=== PATIENT | female | born 1975 | race African-American/Black ===

== ENCOUNTER → 2016-09-26 | Outpatient (CLI) | payer MEDICARE, OTHER ==
[2016-06-29 19:44] VITALS: BP 130/73
[~2016-09-26] MED LIST: AMLO1CAP8 PO; ATOR20TA58 PO; CYCL10TA2; DESV100T PO; DEXT30TA2 PO; LEVO100T5; LORA10CA PO; MELO-150; NAPR220C4 PO; OMEG1CAP6 PO; OXYC-323 PO; PANT40TA5; ZOLP5TAB PO
--- NOTE | 2016-09-26 10:55 | KCIC ---
PROCEDURE Left tibia-fibula radiographs HISTORY Pain to mid lower leg after a fall 1 week ago COMPARISON None FINDINGS Three views of left tibia fibula are submitted. No acute fracture or dislocation is identified. There is patellar prosthesis. There is osteoarthritic change of the medial and lateral compartments of the knee. IMPRESSION 1. No acute fracture is identified. Electronically signed by: Humza Alejandra MD (Sep 26, 2016 10:53:26)
--- NOTE | 2016-09-26 12:54 | KCIC ---
PROCEDURE MR of the left knee HISTORY Left knee pain. Patient fell 1 week ago. Pain is medial. COMPARISON None TECHNIQUE Standard noncontrast images are obtained. FINDINGS There is metal artifact at the patellofemoral joint resulting in artifactual degradation. Blunting and deformity of the medial meniscus compatible with a tear. There is also extrusion of the medial meniscus from the joint compartment. There is artifact at the anterior horn lateral meniscus obscuring its exam. There is mild blunting of the posterior horn and body of the lateral meniscus compatible with a small tear. The anterior cruciate ligament is partially obscured but appears intact. Posterior cruciate ligament is intact. Medial collateral ligament is intact. Iliotibial band, fibular collateral ligament, biceps femoris tendon and popliteus tendon are intact. The extensor mechanism is intact. Moderate joint effusion. No evidence of osteochondral loose body. Limited articular cartilage exam due to artifact. There is chondromalacia at the medial joint compartment. Milder degenerative changes at the lateral joint compartment. Geographic bone lesion within the central medullary canal of the tibial metaphysis, demonstrates signal pattern most compatible with osteonecrosis. This measures about 2.8 cm longitudinal. No evidence of associated bone marrow edema or aggressive bone destruction. IMPRESSION 1. Limited visualization due to artifact, particularly at the anterior knee. 2. Suspect medial and lateral meniscal tears, assuming there has not been prior meniscectomy. 3. Primary osteoarthritis. 4. 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 No associated acute edema. Electronically signed by: Chao Cook MD (Sep 26, 2016 12:52:13)
== END | disposition home or self-care (01) ==
LOC: KCIC MRI 09:15
PROVIDERS: ATTEND Physician Assistant Medical
DX: M17.12 Unilateral primary osteoarthritis, left knee (principal); M79.605 Pain in left leg; W19.XXXA Unspecified fall, initial encounter; Y93.89 Activity, other specified; Y92.89 Other specified places as the place of occurrence of the external cause; Y99.8 Other external cause status
CPT/HCPCS: 73590; 73721

== ENCOUNTER 2018-08-30 19:40 | Emergency (ER) | payer OTHER ==
[~2018-08-30] VITALS: Ht 162.6 cm; Wt 108.9 kg
[~2018-08-30 19:40] MED LIST changes: -AMLO1CAP8 PO; +AMLO1CAP9 PO; -MELO-150; +MELO15TA23; -OXYC-323 PO; +OXYC1TAB15 PO; -PANT40TA5; +PANT40TA77
[2018-08-30 19:44] VITALS: BP 162/69
[2018-08-30] MEDS ORDERED: METHOCARBAMOL 750 MG TABLET PO ONE (20:30)
[2018-08-30] MEDS ORDERED: HYDROcodone/APAP 5/325MG 1 TAB TABLET PO ONE (20:30)
[2018-08-30] MEDS ORDERED: METH-38 PO (21:14)
--- NOTE | 2018-08-30 21:14 | PHYS DOC ---
Past Medical History Past Medical History: CVA, Diabetes-Type II, Hypertension, Migraines Additional Past Medical Histor: cva 1999 Past Surgical History: Knee Replacement Additional Past Surgical Histo: thyroidectomy Alcohol Use: None Drug Use: None Adult General Chief Complaint Chief Complaint: BACK PAIN - NO INJURY HPI HPI 42-year-old female presents to ER with complaints of one week history of lower back pain which radiates across both sides of her lower back. Patient denies urinary symptoms, fever or chills, or N/V/D. She denies recent falls/injury. She denies recent travel. She reports she took 400mg Ibuprofen at 3 p.m. with minimal relief in sxs. She denies swelling or numbness/tingling in bilat. LEs. She denies saddle anesth. or incontinence of bowel/bladder. LMP 08/04/18 reports normal cycle. She denies vaginal sxs or concerns for STDs. Review of Systems Review of Systems Constitutional: Denies fever or chills [] Respiratory: Denies cough or shortness of breath [] Cardiovascular: No additional information not addressed in HPI [] GI: Denies abdominal pain, nausea, vomiting, bloody stools or diarrhea. Denies saddle anesth. or change in bowel pattern : Denies dysuria or hematuria. Denies vaginal sxs. Denies incontinence bowel/ bladder Musculoskeletal: Denies joint pain. Reports lower back pain denying swelling or numbness/tingling in bilat. LEs. Integument: Denies rash or skin lesions [] Neurologic: Denies headache, focal weakness or sensory changes [] All other systems were reviewed and found to be within normal limits, except as documented in this note. Current Medications Current Medications Current Medications Medications (Trade) Dose Ordered Sig/Hermelinda Start Time Stop Time Status Last Admin Dose Admin Acetaminophen/ Hydrocodone Bitart (Lortab 5/325) 1 tab 1X ONCE 08/30/18 20:30 08/30/18 20:31 DC 08/30/18 20:43 1 TAB Methocarbamol (Robaxin) 750 mg 1X ONCE 08/30/18 20:30 08/30/18 20:31 DC 08/30/18 20:43 750 MG Allergies Allergies Allergies Coded Allergies Type Severity Reaction Last Updated Verified No Known Drug Allergies 05/31/16 No Physical Exam Physical Exam Constitutional: Well developed, well nourished, no acute distress, non-toxic appearance. [] HENT: Normocephalic, atraumatic, oropharynx moist, no oral exudates, nose normal. [] Eyes: Pupils equal, conjunctiva normal, no discharge. [] Neck: Normal range of motion, no tenderness, supple Cardiovascular: Heart rate regular rhythm, no murmur [] Lungs & Thorax: Bilateral breath sounds clear to auscultation. Resp. equal/ nonlabored Abdomen: Bowel sounds normal, soft, no tenderness Skin: Warm, dry, no erythema, no rash. [] Back: Tender on palp. across lower back into bilat. upper buttocks- she had denied tenderness in extremities however on palp. of upper posterior thighs she did report areas tender on palp., no CVA tenderness. Full ROM- does have facial grimacing with repositioning Extremities: No tenderness, no cyanosis, no clubbing, ROM intact, no edema. Steady unassisted gait Neurologic: Alert and oriented X 3, normal motor function, normal sensory function, no focal deficits noted. [] Psychologic: Affect normal, judgement normal, mood normal. [] Current Patient Data Vital Signs Vital Signs Date Time Temp Pulse Resp B/P (MAP) Pulse Ox O2 Delivery O2 Flow Rate FiO2 08/30/18 20:43 18 98 Room Air 08/30/18 19:44 98.3 97 162/69 (100) 98.3 EKG EKG [] Radiology/Procedures Radiology/Procedures [] Course & Med Decision Making Course & Med Decision Making 2104: Patient was evaluated in the ER for complaints of lower back pain radiating into her buttocks and upper posterior legs. Patient denied any falls or injuries. Patient denied any incontinence of bowel or bladder or change in bowel pattern. Patient was PMS intact in bilateral lower extremities with no pedal edema. Patient was treated with dose of Robaxin and [place] while in the ER and had taken ibuprofen at home [employer]. Patient reports she has had improvement in pain and is able to reposition much easier than previously. With improved symptoms discussed plans for home discharge with prescription for Robaxin and patient to continue anti-inflammatories. Discussed if symptoms persist follow- up advised with primary care physician for reevaluation and further care. No imaging done as patient had no midline spinal tenderness on palpation or recent falls. Education provided on signs and symptoms to return to ER for an discharge instructions were discussed. At time of discharge discussion pt had steady unassisted gait at bedside. Dragon Disclaimer Dragon Disclaimer This electronic medical record was generated, in whole or in part, using a voice recognition dictation system. Departure Departure Impression: Primary Impression: Sciatica Additional Impression: Back pain Disposition: 01 HOME, SELF-CARE Condition: STABLE Referrals: ELOISE RETANA MD (PCP) Patient Instructions: Back Pain, Adult, Sciatica Additional Instructions: Ice and heat application to affected area every 3-4 hours for 20-30 minutes at a time. Epsom salt soaks daily as directed on container. Tylenol and/or ibuprofen as directed on container as needed for pain. If taking Robaxin no driving or drinking alcohol while on that medication. If symptoms persist follow-up with primary care physician for reevaluation and further care. Scripts Methocarbamol (ROBAXIN-750) 750 Mg Tablet 1 TAB PO BID PRN for PAIN, #10 TAB 0 Refills No driving or drinking alcohol while taking this medication Prov: CONNIE MARTIN APRN 08/30/18 Problem Qualifiers CONNIE MARTIN APRN Aug 30, 2018 21:14
== END 2018-08-30 21:30 | disposition home or self-care (01) ==
LOC: ER 19:40
DX: M54.41 Lumbago with sciatica, right side (principal); M54.42 Lumbago with sciatica, left side; G43.909 Migraine, unspecified, not intractable, without status migrainosus; I10 Essential (primary) hypertension; E11.9 Type 2 diabetes mellitus without complications; Z86.73 Personal history of transient ischemic attack (TIA), and cerebral infarction without residual deficits; Z96.659 Presence of unspecified artificial knee joint
CPT/HCPCS: 99283

== ENCOUNTER → 2019-09-03 | Outpatient (CLI) | payer OTHER ==
[~2019-09-03] MED LIST changes: +METH-38 PO
--- NOTE | 2019-09-03 09:27 | KCIC ---
Cervical spine radiograph 09/03/2019 12:00 AM INDICATION: Neck pain with stiffness for 8 months COMPARISON: None available. TECHNIQUE: Lateral, bilateral oblique, AP and odontoid views of the cervical spine are provided. FINDINGS: The cervical spine is visualized from the craniocervical junction through the cervicothoracic junction. Alignment of the cervical spine is normal. No acute fracture is visualized. Bone mineralization is within normal limits. Disc heights are maintained. There is no prevertebral soft tissue swelling. No significant facet arthropathy. No significant uncovertebral joint disease. There is no osseous spinal canal stenosis. No significant osseous neuroforaminal stenosis. Mild anterior marginal osteophytes at C4-C5 and C5-C6. The lateral masses of C1 articulate appropriately with the C2 vertebral body. IMPRESSION: No acute fracture or malalignment of the cervical spine. Mild cervical spondylosis. Electronically signed by: Salud Salomon MD (09/03/2019 9:24 AM) [id number]
== END | disposition home or self-care (01) ==
LOC: KCIC 08:49
PROVIDERS: ATTEND Physician Assistant Medical
DX: M47.812 Spondylosis without myelopathy or radiculopathy, cervical region (principal); M25.78 Osteophyte, vertebrae
CPT/HCPCS: 72050

== ENCOUNTER → 2019-09-10 | Outpatient (CLI) | payer OTHER ==
--- NOTE | 2019-09-10 14:30 | KCIC ---
MRI Cervical Spine Without Contrast History: Cervical pain, neck pain into both shoulders, decreased range of motion Technique: Multiplanar, multi sequential noncontrast MR imaging was performed of the cervical spine. Comparison: None other than radiographs 09/03/2019 Findings: There is motion degradation. Cervical cord caliber is within normal limits without defined or expansile signal change, somewhat limited evaluation for subtle signal change due to motion. There is no significant marrow edema. Intervertebral disc spaces are overall maintained, very mild disc desiccation throughout cervical spine. There is nonspecific straightening of the cervical spine. There is diffuse narrowing of the cervical spinal canal on a developmental basis. C2-C3: There is no additional spinal stenosis, central canal minimally narrowed about 9 mm on developmental basis. Neural foramina are adequate. C3-C4: There is very minimal disc osteophyte complex. Central canal is minimally narrowed to 8 to 9 mm in part on developmental basis. Neural foramina are adequate. C4-C5: There is minimal disc osteophyte complex, central canal minimally narrowed about 9 mm in part on developmental basis. Neural foramina are overall adequate. C5-C6: There is very minimal disc osteophyte complex, central canal minimally narrowed about 9 to 10 mm. Neural foramina are adequate. C6-C7: Spinal canal and neural foramina are adequate. C7-T1: Spinal canal is adequate. There is facet degenerative change, also likely uncovertebral degenerative change. Accurate evaluation of neural foramina is limited due to motion and signal loss, probable [id number] right and mild left neural foramina compromise. T1-T2: This level was not included on the axial images. Facet degenerative change probably contributes to [id number] posterior narrowing of the left neural foramen. Impression: 1. There is somewhat diffuse narrowing of the cervical spinal canal on a developmental basis, additional mild narrowing as described C3-4 through C5-6 by minimal disc osteophyte complexes. There is probable iuyp-pj-uerducfn narrowing of the left T1-T2 and right C7-T1 neural foramina as described. Electronically signed by: Tomasz Alejandra MD (09/10/2019 2:27 PM) [email or web address]
== END | disposition home or self-care (01) ==
LOC: KCIC MRI 12:44
PROVIDERS: ATTEND Family Medicine
DX: M48.03 Spinal stenosis, cervicothoracic region (principal); M25.78 Osteophyte, vertebrae; M62.838 Other muscle spasm
CPT/HCPCS: 72141

== ENCOUNTER → 2019-10-09 | Outpatient (CLI) | payer OTHER ==
[~2019-10-09] MED LIST changes: +ALPR0.5T PO
--- NOTE | 2019-10-09 16:14 | PAIN ---
DATE OF SERVICE: 10/09/2019 INITIAL CONSULTATION NOTE FOR PAIN CLINIC CHIEF COMPLAINT: Neck and bilateral upper extremity pain. HISTORY OF PRESENT ILLNESS: The patient is a 43-year-old female who presents with a history of pain for about the last 2 months or so, increasing in the base of neck, bilateral upper extremities, and shoulders, not a result of any specific injury or action that she is aware of, but it has been hurting and painful just with daily wear and tear. The patient reports it is beginning to awaken her from sleep at night, at least 3-4 times. The patient reports it is in the base of the neck causing headaches and into the shoulders bilaterally, right and left in the posterior shoulder and also in the anterior shoulder to some extent, the clavicular region, into the posterior deltoids, posterior triceps, and also biceps, and into the forearms occasionally with electrical shooting pain. The patient reports the pain is becoming more constant, stabbing, and throbbing in the back and the neck and upper extremities, cramping and aching as well in the shoulders. The patient reports it is again awakening her from sleep several times at night. It does not affect her bowel or bladder control or ability to walk. She has tried exercising on her own, which has not helped to decrease the pain significantly. She also has had some physical therapy in the past. Again, it was not helpful and this was several years ago. The patient is still doing some stretching and strengthening exercises. She has been taking rezn-ikl-awmzcra Aleve as well as Motrin and Tylenol which is not decreasing the pain as well. The patient is taking Ambien for sleep, which does help her sleep, but it is again awakening her even with the sleeping aid from the pain. The patient reports disability range 0-10, 10 being the worst, is a 6 with family home responsibilities, 5 with recreation, 6 with life support activities, 5 with self-care, 3 with social activity, and 4 with occupation activities. PAST MEDICAL HISTORY: Significant for type 2 diabetes, hypertension, and arthritis. PREVIOUS SURGERY: Includes thyroidectomy, left knee replacement, and right knee replacement. CURRENT MEDICATIONS: Include Xanax, amlodipine, Ambien, Adderall, atorvastatin, pantoprazole, and levothyroxine. FAMILY HISTORY: Significant for no major medical conditions or illnesses that she lists. SOCIAL HISTORY: The patient does not drink alcohol, does not smoke, and does not use any illegal, illicit, or recreational drugs. She is single and lives locally in [place]. She has 5 children living with her. REVIEW OF SYSTEMS: The patient's review of systems is positive for those items mentioned in history of present illness. All systems reviewed and otherwise negative. It is complete, full, and well documented on the patient's chart. PHYSICAL EXAMINATION: VITAL SIGNS: The patient's blood pressure is 115/75, pulse 78, respirations 16, temperature 98.8 degrees Fahrenheit, height is 5 feet 2 inches, and weight is 260 pounds. GENERAL: The patient is awake, alert, oriented, and appropriate. Very pleasant demeanor. HEENT: Head is normocephalic and atraumatic. Extraocular movements are intact and symmetrical. Oral cavity: Mucous membranes moist and pink. Dentition is intact. NECK: Anterior throat supple without palpable lymphadenopathy noted. Swallow reflex symmetrical. CHEST: Normal on inspection. Breath sounds are clear bilaterally. HEART: S1, S2 clear. No murmurs auscultated. ABDOMEN: Soft, nontender, and nondistended. No palpable organomegaly is noted. No rebound or guarding demonstrated. BACK: Shows spine grossly in the midline. Normal-appearing cervical lordotic curvature, thoracic kyphotic curvature, and lumbar lordotic curvature. Cervical paraspinous muscle shows symmetrical on inspection and palpation shows some xvbh-fm-bjlamvvp tenderness throughout the upper, middle, and lower distribution of paraspinous musculature and also into the superior medial and lateral trapezius, slightly more on the right than the left, but present bilaterally without specific trigger points, without any atrophy or hypertrophy, and without any radiation of pain. The patient does show good rotational motion of cervical spine with tenderness with greater than 45 degrees, right and left lateral rotation, but close to 90 degrees and is performed fully but guarded, right and left. The patient reports pain with extension as well as forward flexion. Forward flexion is actually more painful than extension on the right side as well. EXTREMITIES: The patient's upper extremities show deep tendon reflexes at 2+ in the biceps and triceps tendons. Motor exam is strong with manager registration strength rated at 5/5 as is bicep and tricep flexion. Peripheral pulses are 2+ in radial distribution. No peripheral edema is noted. Upper extremities are warm and dry to touch and equal in color and appearance. Shoulder shrug is strong and intact without loss of strength on resistance, but with significant pain reported more on the right than the left, but present bilaterally with resistance. This is true with abduction of shoulder to 90 degrees and also without loss of strength, but with significant pain bilaterally, right greater than left. SKIN: Skin shows warm and dry. Good turgor. No edema. No sores, rashes, or bruising throughout. IMPRESSION: 1. This is a 43-year-old female with about 2-month history of increasing pain in base of the neck and shoulders and upper extremities in a radicular fashion bilaterally following a C5-C6 dermatomal distribution. 2. MRI scan of the cervical spine is showing degenerative disk changes with multiple disk bulges at C3-C4, C4-C5, C5-C6, as well as C6-C7 without specific herniation or significant stenosis. 3. Arthritis. 4. Hypertension. 5. Diabetes. PLAN: Options were discussed with the patient including conservative medical managements, continued physical therapies, and interventional techniques. She would like to pursue interventional techniques. We discussed a cervical epidural steroid injection using description as well as anatomical models to describe the procedure. The patient will try Medrol Dosepak. In the meantime, we will wait for preauthorization with her insurance provider for the injection to proceed. The patient has clinical radiculopathy in C5-C6 and C6-C7 dermatomal distribution bilaterally. We will plan on a C5-C6 translaminar epidural steroid injection upon approval. Again, the patient will try Medrol Dosepak in the meantime and was given instruction as well as side effects to be aware of with the medication and will follow up as scheduled. GUSTAVO YOO MD DR: WILLIAM/ryan JOB#: [id number] / [id number] ELOISE Keane MD
== END | disposition home or self-care (01) ==
LOC: PNCL 08:24
PROVIDERS: ATTEND Anesthesiology
DX: M50.21 Other cervical disc displacement, high cervical region (principal); M50.31 Other cervical disc degeneration, high cervical region; I10 Essential (primary) hypertension; E11.9 Type 2 diabetes mellitus without complications; M19.90 Unspecified osteoarthritis, unspecified site
CPT/HCPCS: G0463

== ENCOUNTER → 2019-10-23 | Outpatient (CLI) | payer OTHER ==
[~2019-10-23] MED LIST changes: +IOHEXOL 180 MG/ML 10 ML VIAL. ONE; +methylPREDNISolone ACETATE 40 MG/ML VIAL. ONE; +methylPREDNISolone ACETATE 80 MG/ML VIAL. ONE
--- NOTE | 2019-10-23 10:51 | PAIN ---
DATE OF SERVICE: 10/23/2019 PROGRESS NOTE FOR PAIN CLINIC DIAGNOSES: Cervical radiculopathy with cervical degenerative disc disease. HISTORY OF PRESENT ILLNESS: This is a 44-year-old female who returned for followup status post initial evaluation and preauthorization for cervical epidural steroid injection, still with significant pain in the base of neck and into the right upper extremity as it was previously. The patient reports pain is a 6-7 on a scale of 10 at all times over the past week average, least, and its worst, and is 6-7 today. The patient reports it is aching, dull, stabbing, cramping into the shoulders bilaterally, again somewhat worse on the right than the left, but present in both. The patient reports it does awaken her from sleep at night about every 6 hours. She did try Medrol Dosepak after last visit and she reports it did help by about 50% while she was taking it, but the pain returned once it was finished. The patient reports no new motor or sensory deficits, no new changes. PHYSICAL EXAMINATION: VITAL SIGNS: The patient's blood pressure is 131/79, pulse 94, respirations 18, temperature is 98.7 degrees Fahrenheit, and weight is 254 pounds. GENERAL: The patient is awake, alert, oriented, appropriate, very pleasant demeanor. HEENT: Shows normocephalic and atraumatic. Extraocular movements are intact and symmetrical. Oral cavity shows mucous membranes moist and pink. Dentition is intact. NECK: Shows anterior throat supple without palpable lymphadenopathy noted. Swallow reflex symmetrical. CHEST: Shows normal on inspection. Breath sounds are clear bilaterally. HEART: Shows S1 and S2 clear. ABDOMEN: Soft, nontender, and nondistended. BACK: Shows spine grossly in the midline, normal-appearing cervical lordotic curvature and some slight increase in thoracic kyphosis. Cervical paraspinous muscle shows symmetrical on inspection, with palpation shows some mild tenderness in the middle and lower distribution of paraspinous muscles bilaterally into the superior medial trapezius as well as the lateral trapezius, more on the right than the left, but without specific trigger points, without atrophy, hypertrophy, no asymmetry. The patient shows good rotational motion of the cervical spine, both laterally as well as extension and flexion without significant limitation. EXTREMITIES: The patient's upper extremities show deep tendon reflexes are 2+ in the biceps and triceps tendons. Motor exam is strong with 5/5 technical recruiter strength, bicep and tricep flexion and symmetrical. Peripheral pulses are 2+ in the radial distribution bilaterally. Options were discussed with the patient. The patient's old chart was reviewed as her current medication regimen updated. Current review of systems updated today as well and we will proceed with a cervical epidural steroid injection today with fluoroscopic guidance. Risks were again discussed including, but not limited to bleeding, infection, possibility of epidural hematoma, subsequent neurologic compromise, dural puncture, headaches, spinal cord and/or nerve damage, side effects of steroid medication and poor results regarding pain control. The patient understands and wished to proceed. The patient will return to the clinic in approximately 2 weeks for followup. She was counseled on return appointment, activity level, and side effects to be aware of. DIAGNOSES: Cervical radiculopathy with cervical degenerative disc disease. PROCEDURE: Cervical epidural steroid injection, translaminar approach at C6-C7 level using C-arm fluoroscopic guidance under sterile prep and drape using local anesthetic. MEDICATION INJECTED: A total of 120 mg of Depo-Medrol plus 5 mL of preservative-free normal saline and 2 mL of contrast. CONDITION AT DISCHARGE: Stable. The patient tolerated the procedure well, had no complications. GUSTAVO YOO MD DR: WILLIAM/ryan JOB#: [id number] / [id number]
== END | disposition home or self-care (01) ==
LOC: PNCL 08:20
PROVIDERS: ATTEND Anesthesiology
DX: M50.123 Cervical disc disorder at C6-C7 level with radiculopathy (principal)
CPT/HCPCS: 62321; J1030; J1040; Q9965; 62323

== ENCOUNTER → 2019-11-06 | Outpatient (CLI) | payer OTHER ==
[~2019-11-06] MED LIST changes: -IOHEXOL 180 MG/ML 10 ML VIAL. ONE; -methylPREDNISolone ACETATE 40 MG/ML VIAL. ONE; -methylPREDNISolone ACETATE 80 MG/ML VIAL. ONE
--- NOTE | 2019-11-06 09:35 | PAIN ---
DATE OF SERVICE: 11/06/2019 PROGRESS NOTE FOR PAIN CLINIC DIAGNOSIS: Cervical radiculopathy with cervical degenerative disk disease. HISTORY OF PRESENT ILLNESS: The patient is a 44-year-old female who returns for followup status post cervical epidural steroid injection x 1. The patient reports about 70% improvement with the first injection, still pain in the base of neck and shoulders as well as the upper extremities, much better in the upper extremities, still some pain in the shoulders and upper back. The patient reports over the past week it extending anywhere from a 4-5 on average, least and worst and is a 4 today. The patient reports it is aching, sharp, tight, still awakens her from sleep at night, but otherwise doing much better. She increased her activity with doing household activities, repetitive motions with the upper extremities, weightlifting with the upper extremities, reaching much more comfortably. The patient reports it again awakens her from sleep, but not as often. The patient reports no new motor or sensory deficits, no new changes. Describes the pain as aching, sharp and tight across the shoulders bilaterally, essentially equal right and left at this time. PHYSICAL EXAMINATION: VITAL SIGNS: The patient's blood pressure is 115/83, pulse 91, respirations 18, temperature is 98.6 degrees Fahrenheit. Height is 5 feet 4 inches. Weight is 257 pounds. GENERAL: The patient is awake, alert, oriented, appropriate, very pleasant demeanor. HEENT: Head shows normocephalic, atraumatic. Extraocular movements are intact and symmetrical. Oral cavity shows mucous membranes are moist and pink. Dentition is intact. NECK: Shows anterior throat supple without palpable lymphadenopathy noted. Swallow reflex symmetrical. CHEST: Shows normal on inspection. Breath sounds are clear bilaterally. HEART: Shows S1, S2 clear. ABDOMEN: Soft, nontender, nondistended. No palpable organomegaly is noted. No rebound or guarding demonstrated. BACK: Shows spine grossly in the midline. Normal appearing thoracic kyphosis, cervical lordotic curvature and lumbar lordotic curvature. Cervical paraspinous muscle shows symmetrical on inspection, with palpation shows some mild tenderness diffusely, but only mildly without significant radiation. The patient does show good rotational motion of the cervical spine, both laterally greater than 45 degrees right and left, closer to 90 degrees as well as full extension and full forward flexion without significant increase in pain. EXTREMITIES: The patient's upper extremities showed deep tendon reflexes at 2+ in the biceps and triceps tendons. Motor exam is 5/5 with glass setter strength, bicep and tricep flexion is symmetrical and equal. Peripheral pulses are 2+ radial. No peripheral edema is noted. Shoulder shrug is strong and intact without loss of strength on resistance, but with fairly significant pain in the base of the neck and into the superior shoulders bilaterally, but again without radiation. Options were discussed with the patient. The patient's old chart was reviewed as her current medication regimen updated. Current review of systems updated today as well. We will preauthorize the patient for a second cervical epidural steroid injection. She did very well after the first injection for about 3 weeks now. The patient will maintain stretching and strengthening exercises of the neck and shoulders. Also, we talked about heat application and we will try Flexeril, muscle relaxer to add. The patient was cautioned as to the potential side effects with medication, especially sedation, and we will have her try this in the meantime with preauthorization for a translaminar approach at C6-C7 cervical epidural steroid injection again with significant bilateral radiculopathy at the C6-C7 dermatomal level. The patient will return to clinic as scheduled. We will plan on cervical epidural steroid injection #2 at that time. GUSTAVO YOO MD DR: WILLIAM/ryan JOB#: [id number] / [id number]
== END ==
LOC: PNCL 08:52
PROVIDERS: ATTEND Anesthesiology
DX: M50.123 Cervical disc disorder at C6-C7 level with radiculopathy (principal)
CPT/HCPCS: G0463 ×2

== ENCOUNTER 2020-05-02 20:53 | Emergency (ER) | payer OTHER ==
[~2020-05-02] VITALS: Ht 162.6 cm; Wt 118.1 kg
[2020-05-02 21:39] LABS: BASO # 0.1 x10^3/uL (0.0-0.2); BASO % 2 % (0-3); EOS # 0.1 x10^3/uL (0.0-0.7); EOS % 1 % (0-3); HEMATOCRIT 35.8 % (36.0-47.0); HEMOGLOBIN 11.9 g/dL (12.0-15.5); LYMPH % 34 % (24-48); MEAN CORPUSCULAR HEMOGLOBIN 25 pg (25-35); MEAN CORPUSCULAR HGB CONC 33 g/dL (31-37); MEAN CORPUSCULAR VOLUME 76 fL (79-100); MONO # 0.7 x10^3/uL (0.0-1.1); MONO % 8 % (0-9); NEUT % 56 % (31-73); PLATELET COUNT 271 x10^3/uL (140-400); RED BLOOD COUNT 4.68 x10^6/uL (3.50-5.40); RED CELL DISTRIBUTION WIDTH 17.9 % (11.5-14.5); WHITE BLOOD COUNT 8.9 x10^3/uL (4.0-11.0)
[2020-05-02 21:46] LABS: CREATININE 0.9 mg/dL (0.6-1.0); GFR 82.7; POTASSIUM 3.9 mmol/L (3.5-5.1)
--- NOTE | 2020-05-02 22:04 | RAD ---
Single view chest dated 05/02/2020: Neck CT dated 10/19/2014. Clinical Indication: Chest pain. Findings: Single upright portable exam of the chest was performed. Heart size within normal limits. There is some soft tissue thickening of the upper mediastinum that is similar to prior neck CT. The lungs are clear without evidence of focal consolidation. Vascular interstitium is within normal limits. Impression:: 1. No acute radiographic abnormality. 2. Soft tissue thickening at the upper mediastinum is similar to prior neck CT and could be related to thyroid enlargement or thyroid goiter. Correlate clinically. Electronically signed by: Chao Kowalski MD (05/02/2020 10:01 PM) [facility]
[2020-05-02] MEDS ORDERED: IPRATRPIUM/ALBUTEROL 0.5/2.5MG 3 ML NEBU. NEB ONE (22:15)
[2020-05-02] MEDS ORDERED: SIMETHICONE 80 MG TAB.CHEW PO ONE (22:30)
[2020-05-03] MEDS ORDERED: CONTRAST GIVEN. MC PRN (00:15)
[2020-05-03] MEDS ORDERED: IOHEXOL 350 MG/ML 100 ML VIAL. IV ONE (00:15)
[2020-05-03 02:14] LABS: PREG TEST PT QUAL NEGATIVE (NEG)
--- NOTE | 2020-05-03 03:09 | RAD ---
CT angiogram chest with contrast PQRS statement: CT scans at this facility use dose reduction including either automated exposure control, iterative reconstructions, and /or weight based radiation dosing via mA and kV modification when appropriate to reduce radiation dose to as low as reasonably achievable. TECHNIQUE: CT imaging the chest with 3-D MIP reconstructions of the pulmonary arteries with 100 mL Omnipaque 350 intravenous contrast. HISTORY: Chest pain and elevated d-dimer. COMPARISON: Chest x-ray May 02, 2020. CT neck October 19, 2014 FINDINGS: Since the prior exam there has been resection of the thyroid.. There is anterior mediastinal mass at the prevascular space with hypervascular contrast enhancement, this mass measures 8 cm craniocaudal by 8 cm transverse by 6 cm AP abutting the aorta and pulmonary artery, this mass is similar to the prior CT neck study which contracted or had a small bridging focus of tissue with the prior thyroid gland since resected. Heart size is normal. No pulmonary artery emboli evident. Esophagus unremarkable. No enlarged adenopathy in the chest with subcentimeter hilar lymph nodes present. No pulmonary opacities or nodules. No pneumothorax. No pleural effusions. Trachea and bronchi are unremarkable. Bones are unremarkable. IMPRESSION: 1. No acute process. No pulmonary artery emboli. 2. Anterior mediastinal mass. This is similar to prior CT imaging in 2015. 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 This could be confirmed as thyroid tissue with iodine nuclear medicine thyroid scan, to exclude the possibility of thymoma. Electronically signed by: Jh Stapleton MD (05/03/2020 3:06 AM) [facility]
--- NOTE | 2020-05-03 03:25 | PHYS DOC ---
Past Medical History Past Medical History: CVA, Diabetes-Type II, High Cholesterol, Hypertension, Migraines Additional Past Medical Histor: cva 1999 Past Surgical History: Knee Replacement, Other Additional Past Surgical Histo: thyroidectomy,MULTIPLE KNEE Smoking Status: Former Smoker Alcohol Use: None Drug Use: None General Adult EDM: Chief Complaint: CHEST PAIN HPI: HPI: Patient is a 44-year-old female who presents to the emergency room complaining of substernal chest pain. Patient states this is been intermittent over the last 24 hours. She also has sore throat that feels scratchy like she needs to have a drink. She denies any fever, chills, sweats. She is not having any other URI symptoms. She has not had cough or shortness of breath. Review of Systems: Review of Systems: General: Denies fever, chills, sweats, fatigue Eyes: Denies drainage, blurred vision, eye redness HENT: Denies rhinorrhea, sore throat, earache Respiratory: Denies cough, shortness of breath, wheezing Cardiac: Denies edema, palpitations. Reports chest pain GI: Denies abdominal pain, Nausea, vomiting MSK: Denies back pain, neck pain Skin: Denies rash, jaundice Neuro: Denies headache, dizziness Psychiatric: Denies SI/HI Heart Score: Risk Factors: Risk Factors: DM, Current or recent (<one month) smoker, HTN, HLP, family history of CAD, obesity. Risk Scores: Score 0 - 3: 2.5% MACE over next 6 weeks - Discharge Home Score 4 - 6: 20.3% MACE over next 6 weeks - Admit for Clinical Observation Score 7 - 10: 72.7% MACE over next 6 weeks - Early Invasive Strategies Current Medications: Current Medications Medications (Trade) Dose Ordered Sig/Hermelinda Start Time Stop Time Status Last Admin Dose Admin Albuterol/ Ipratropium (Duoneb) 3 ml 1X ONCE 05/02/20 22:15 05/02/20 22:16 DC 05/02/20 22:42 3 ML Info (CONTRAST GIVEN -- Rx MONITORING) 1 each PRN DAILY PRN 05/03/20 00:15 05/05/20 00:14 Iohexol (Omnipaque 350 Mg/ml) 100 ml 1X ONCE 05/03/20 00:15 05/03/20 00:16 DC 05/03/20 02:36 100 ML Simethicone (Gas-X) 80 mg 1X ONCE 05/02/20 22:30 05/02/20 22:31 DC 05/02/20 22:37 80 MG Allergies: Allergies: Allergies Coded Allergies Type Severity Reaction Last Updated Verified No Known Drug Allergies 05/31/16 No Physical Exam: PE: General: Awake, alert, NAD. Well Nourished, well hydrated. Cooperative HEENT: Atraumatic, EOMI, PERRL, airway patent, moist oral mucosa Neck: Supple, trachea midline Respiratory: CTA bilaterally, normal effort, no wheezing/crackles CV: RRR, no murmur, cap refill <2 GI: Soft, nondistended, nontender, no masses MSK: No obvious deformities Skin: Warm, dry, intact Neuro: A&O x3, speech NL, sensory and motor grossly intact, no focal deficits Psych: Normal affect, normal mood, not suicidal or homicidal Current Patient Data: Labs: Laboratory Tests Test 05/02/20 21:20 White Blood Count 8.9 x10^3/uL (4.0-11.0) Red Blood Count 4.68 x10^6/uL (3.50-5.40) Hemoglobin 11.9 g/dL (12.0-15.5) L Hematocrit 35.8 % (36.0-47.0) L Mean Corpuscular Volume 76 fL (79-100) L Mean Corpuscular Hemoglobin 25 pg (25-35) Mean Corpuscular Hemoglobin Concent 33 g/dL (31-37) Red Cell Distribution Width 17.9 % (11.5-14.5) H Platelet Count 271 x10^3/uL (140-400) Neutrophils (%) (Auto) 56 % (31-73) Lymphocytes (%) (Auto) 34 % (24-48) Monocytes (%) (Auto) 8 % (0-9) Eosinophils (%) (Auto) 1 % (0-3) Basophils (%) (Auto) 2 % (0-3) Neutrophils # (Auto) 5.0 x10^3/uL (1.8-7.7) Lymphocytes # (Auto) 3.0 x10^3/uL (1.0-4.8) Monocytes # (Auto) 0.7 x10^3/uL (0.0-1.1) Eosinophils # (Auto) 0.1 x10^3/uL (0.0-0.7) Basophils # (Auto) 0.1 x10^3/uL (0.0-0.2) D-Dimer (Nallely) 0.59 ug/mlFEU (0.00-0.50) H Sodium Level 140 mmol/L (136-145) Potassium Level 3.9 mmol/L (3.5-5.1) Chloride Level 105 mmol/L (98-107) Carbon Dioxide Level 29 mmol/L (21-32) Anion Gap 6 (6-14) Blood Urea Nitrogen 6 mg/dL (7-20) L Creatinine 0.9 mg/dL (0.6-1.0) Estimated GFR (Cockcroft-Gault) 82.7 Glucose Level 104 mg/dL (70-99) H Calcium Level 9.0 mg/dL (8.5-10.1) Troponin I Quantitative < 0.017 ng/mL (0.000-0.055) Serum Test, Qualitative Negative (NEG) Laboratory Tests 05/02/20 21:20 Laboratory Tests 05/02/20 21:20 Vital Signs: Vital Signs Date Time Temp Pulse Resp B/P (MAP) Pulse Ox O2 Delivery O2 Flow Rate FiO2 05/02/20 22:43 98 Room Air 05/02/20 20:53 98.3 99 20 141/81 (101) 98.3 EKG: EKG: [] Radiology/Procedures: Radiology/Procedures: [] Course & Med Decision Making: Course & Med Decision Making Pertinent Labs and Imaging studies reviewed. (See chart for details) Patient is a 44 year-old female who presents to the Emergency Room complaining of chest pain and sore throat. At this time, given patient's risk factors and story there is concern for possible cardiac pathology. EKG was ordered and shows normal sinus rhythm. At this time there is no signs of STEMI, pericarditis, or unstable arrthymia on EKG. Patient has received aspirin today. CBC, BMP, troponin, CXR were ordered to evaluate for causes of chest pain including ACS, anemia, electrolyte abnormalities that can lead to arrhythmias, PTX, pneumonia, pneumomediastinum. Patient does not have any abdominal tenderness that would suggest pancreaititis or cholecystitis and does not need an abdominal work up at this time. Patient's HEART score is 2 placing the patient at low risk. I did offer the patient admission and at this time she declines. She would like to follow-up with her primary care physician. This does not seem to be appropriate at this time. We have discussed strict return precautions. Patient's test results and vitals while in the ED were fully reviewed and discussed with the patient. Patient is stable and at this time does not need admission to the hospital. We have discussed strict return precautions and the importance of following up with their Primary Care Physician. Patient stated understanding and was given an opportunity to ask any questions. Patient is in agreement with plan. Dragon Disclaimer: Dragon Disclaimer: This electronic medical record was generated, in whole or in part, using a voice recognition dictation system. Departure Departure Impression: Primary Impression: Chest pain Additional Impression: Sore throat Disposition: HOME, SELF-CARE Condition: IMPROVED Referrals: ELOISE RETANA MD (PCP) Patient Instructions: Chest Pain (Nonspecific) NORY BRAXTON MD May 03, 2020 03:25
[2020-05-03] MEDS ORDERED: DEXAMETHASONE SOD PHOS 20 MG/5 ML VIAL. IVP ONE (03:30)
[2020-05-03 04:27] VITALS: BP 154/98
== END 2020-05-03 04:31 | disposition home or self-care (01) ==
LOC: ER 20:53
DX: R07.89 Other chest pain (principal); J02.9 Acute pharyngitis, unspecified; E11.9 Type 2 diabetes mellitus without complications; E78.00 Pure hypercholesterolemia, unspecified; I10 Essential (primary) hypertension; G43.909 Migraine, unspecified, not intractable, without status migrainosus; Z86.73 Personal history of transient ischemic attack (TIA), and cerebral infarction without residual deficits; Z87.891 Personal history of nicotine dependence; Z98.890 Other specified postprocedural states
CPT/HCPCS: 36415; 71045; 71275; 80048; 84484; 84703; 85025; 85379; 94640; 96374; 99285; J1100; Q9967